=== PATIENT | female | born 1975 | race Caucasian/White ===

== ENCOUNTER → 2020-02-08 12:01 | Outpatient (CLI) | payer OTHER, MEDICAID, SELFPAY ==
--- NOTE | 2020-02-08 | DI.MG.S_ITS ---
BILATERAL DIGITAL SCREENING MAMMOGRAM 3D/2D WITH CAD: 02/08/2020 CLINICAL: Routine screening. Baseline exam. Family history of breast cancer. No prior exams were available for comparison. The tissue of both breasts is heterogeneously dense. This may lower the sensitivity of mammography. Current study was also evaluated with a Computer Aided Detection (CAD) system. No significant masses, calcifications, or other findings are seen in either breast. IMPRESSION: NEGATIVE There is no mammographic evidence of malignancy. A 1 year screening mammogram is recommended. This exam was interpreted at Station ID: [id number]. NOTE: For mammograms, a report in lay terms will be sent to the patient. Approximately 15% of breast malignancies will not be visualized mammographically. In the management of a palpable breast mass, a negative mammogram must not discourage biopsy of a clinically suspicious lesion. Electronically Signed By: Magno osullivan/griselda:02/08/2020 12:28:09 letter sent: Normal Exam ACR BI-RADS Category 1: Negative 3341F
== END ==
PROVIDERS: Family Provider Family Medicine; PCP Family Medicine; Referring Provider Family Medicine; Visit Provider Family Medicine
DX: Z12.31 Encounter for screening mammogram for malignant neoplasm of breast (principal); Z80.3 Family history of malignant neoplasm of breast
CPT/HCPCS: 77063; 77067

== ENCOUNTER 2020-12-20 11:48 | Emergency (ER) | payer OTHER, MEDICAID, SELFPAY ==
[2020-12-20] VITALS (12 sets, daily range): BP systolic 92–119; BP diastolic 51–63; PULSE 70–82; RESP 11–28; TEMP 36.6; O2SAT 98–100; BMI 21.9
--- NOTE | 2020-12-20 12:04 | ED_ITS ---
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 She says it sometimes hurts whenever she takes a deep breath. He denies any radiation of pain. She does not feel it all the time. Does not remember injuring it. She denies any shortness of breath no nausea vomiting. She has not taken any Tylenol for it. She has no real abdominal pain or vaginal bleeding. All Related Data Home Medications Medication Instructions Recorded Confirmed [FISH OIL ] #0 08/11/11 Allergies Allergy/AdvReac Type Severity Reaction Status Date / Time No Known Drug Allergies Allergy Verified 12/20/20 11:53 Review of Systems Review of Systems Narrative: GENERAL: Denies chills, fatigue, malaise, fever, sweats, travel HEENT: Denies sinus pain, ear pain, sore throat, difficulty swallowing, neck pa in RESPIRATORY: See HPI CARDIOVASCULAR: Denies chest pain, palpitations, orthopnea, edema GASTROINTESTINAL: See HPI : Denies dysuria, frequency, incontinence, hematuria, urinary retention, flank pain. MUSCULOSKELETAL: Denies weakness, joint pain, or bony pain SKIN: No rash, no erythema, no pruritus NEUROLOGIC: Denies weakness, dizziness, headache, numbness, change in speech, confusion PSYCHIATRIC: No concerning psychosocial issues. 12 point review of systems is negative except for those stated above and HPI Patient History Family History (Updated 09/08/16 @ 00:00 by Conversion Provider) Grandmother Heart disease Mother Age: 64 Breast cancer Grandmother Cancer Sister Age: 40 Mental health problem Sister Age: 24 Mental health problem Social History Smoking Status: Unknown if ever smoked Smoking Status: Unknown if ever smoked alcohol intake frequency: holidays/special occasions only Substance Use Type: does not use Exam Initial Vital Signs Initial Vital Signs: Vital Signs Temperature 97.9 F 12/20/20 11:53 Pulse Rate 81 12/20/20 11:53 Respiratory Rate 14 12/20/20 11:53 Blood Pressure 119/56 L 12/20/20 11:53 Pulse Oximetry 100 12/20/20 11:53 GENERAL: Well-appearing, well-nourished and in no acute distress. HEENT: Head atraumatic,EOMI, pupils reactive, face symmetric, moist mucous membranes CARDIOVASCULAR: Regular rate and rhythm without murmurs, rubs or gallops. RESPIRATORY: Breath sounds equal bilaterally, no wheezes rales or rhonchi. Pinpoint rib pain on right anterior side no paradoxical ABDOMEN: Soft, gravid no real right upper quadrant pain negative Garcia sign the mild epigastric pain : No CVA tenderness EXTREMITIES: Normal range of motion, no clubbing or edema. Neurovascularly intact NEUROLOGICAL: Alert and oriented x4.Normal gait and speech. SKIN: Warm, dry, no laceration, no petechiae, no rashes or lesions. Course Orders Ordered: ED Orders 12/20/20 11:56 EKG-12 Lead Stat 12/20/20 12:10 Complete Blood Count AUTO DIFF Stat Comprehensive Metabolic Panel Stat Lipase Stat Troponin & CK Cardiac Panel Stat 12/20/20 13:03 US abdomen limited Stat 12/20/20 15:26 XR chest 1V Stat Discontinued Medications Acetaminophen (Acetaminophen 325 Mg Tablet) 975 mg PO NOW ONE Stop: 12/20/20 13:09 Last Admin: 12/20/20 13:14 Dose: 975 mg Documented by: GIO Sodium Chloride (Normal Saline 0.9%) 1,000 mls @ 1,000 mls/hr IV BOLUS ONE Stop: 12/20/20 14:02 Last Infusion: 12/20/20 14:33 Dose: 0 mls/hr Documented by: Admin: 12/20/20 13:14 Dose: 1,000 mls/hr Documented by: GIO Vital Signs Vital signs: Vital Signs - 8 hr 12/20/20 11:53 12/20/20 12:05 12/20/20 12:06 Temperature 97.9 F Pulse Rate 81 77 78 Respiratory Rate 14 15 Blood Pressure 119/56 L 111/58 L Pulse Oximetry 100 99 12/20/20 12:30 12/20/20 13:00 12/20/20 13:08 Temperature Pulse Rate 72 82 71 Respiratory Rate 15 15 14 Blood Pressure 92/51 L 112/60 106/56 L Pulse Oximetry 98 100 99 12/20/20 13:30 12/20/20 14:00 12/20/20 14:17 Temperature Pulse Rate 73 70 74 Respiratory Rate 14 11 L 17 Blood Pressure 107/63 118/59 L 98/54 L Pulse Oximetry 98 100 98 12/20/20 14:30 12/20/20 15:00 12/20/20 16:13 Temperature Pulse Rate 75 74 81 Respiratory Rate 16 28 H 16 Blood Pressure 97/52 L 106/63 109/58 L Pulse Oximetry 100 99 100 MDM - Chest Pain Lab Data Result diagrams: 12/20/20 12:10 12/20/20 12:10 Labs: Lab Results 12/20/20 12/20/20 Range/Units 12:10 12:10 WBC 13.7 H (4.5-11.0) X10^3/uL RBC 3.87 L (4.0-5.2) X10^6/uL Hgb 11.6 L (12.0-16.0) g/dL Hct 34.6 L (36-46) % MCV 89.4 (80-100) fL MCH 30.1 (26-34) PG MCHC 33.7 (30-36) % RDW 13.5 (11.6-14.8) % Plt Count 214 (150-400) X10^3/uL Neut % (Auto) 78.8 H (50-75) % Lymph % (Auto) 10.7 L (25-40) % [place] % (Auto) 5.8 (3-14) % Eos % (Auto) 4.0 (2-4) % Baso % (Auto) 0.7 (0-2) % Neut # (Auto) 46857 H (6080-8217) /uL Lymph # (Auto) 1500 (4810-7504) /uL [place] # (Auto) 800 (0-900) /uL Eos # (Auto) 500 H (0-450) /uL Baso # (Auto) 100 (0-100) /uL Sodium 135 L (137-145) mmol/L Potassium 3.6 (3.4-5.1) mmol/L Chloride 108 H (98-107) mmol/L Carbon Dioxide 22 (22-32) mmol/L BUN 10 (7-17) mg/dL Creatinine 0.51 L (0.52-1.04) mg/dL Estimated GFR > 60.0 (>60) mL/min BUN/Creatinine Ratio 19.6 (6-22) Glucose 98 (70-100) mg/dL Calcium 8.5 (8.4-10.2) mg/dL Total Bilirubin 0.2 (0.2-1.3) mg/dL AST 16 (14-36) IU/L ALT 13 (<35) IU/L Alkaline Phosphatase 76 (38-126) U/L Total Creatine Kinase 40 (30-135) U/L CK-MB (CK-2) TNP CK-MB (CK-2) Rel Index TNP Troponin I < 0.012 (0.01-0.034) ng/mL Total Protein 6.2 L (6.3-8.2) g/dL Albumin 3.5 (3.5-5.0) g/dL Globulin 2.7 (1.7-4.1) g/dL Albumin/Globulin Ratio 1.3 (1.0-2.8) Lipase 97 (23-300) U/L Urine Dip Bedside Urine Glucose Negative Bedside Urine Bilirubin - Negative Bedside Urine Ketone - Negative Urine Specific [place] 1.015 Bedside Urine Occult Blood - Negative Bedside Urine pH 6 Bedside Urine Protein - Negative Bedside Urine Urobilinogen - Negative Bedside Urine Nitrite - Negative Bedside Urine Leukocytes - Negative Esterase Imaging Data US - abdomen: Radiologist's Impression: PROCEDURE: US ABDOMEN LIMITED ? INDICATIONS:? RUQ PAIN, PREGO ? TECHNIQUE:? Real-time focused scanning was performed of the abdomen, with image documentation.? ? COMPARISON:? None. ? FINDINGS:? ? Liver is normal in size and echotexture. ? Multiple gallbladder folds or septations are noted.? Small amount of gallbladder sludge noted.? No gallstones.? No gallbladder wall thickening with gallbladder wall measuring 1.1 millimeters.? No pericholecystic fluid.? No sonographic Garcia sign. ? Biliary tree is nondilated.? Common bile duct measures 2.4 millimeters. ? Moderate right-sided hydronephrosis. ? ? IMPRESSION:? ? 1. No sonographic evidence of cholelithiasis or cholecystitis. ? 2. Moderate right-sided hydronephrosis. ? ? ? Dictated by: Iram Teixeira MD, PhD on 12/20/2020 at 14:31 ?? ECG Data Interpretation: Normal sinus rhythm rate 83 ID interval 116 QRS [address] changes T inversion MDM Narrative Medical decision making narrative: Patient is currently 29 weeks with pin point tenderness in her right anterior ribs. 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 Discussed with patient chest x-ray. Minimal radiation exposure however pinpoint pain between ribs likely a costochondritis. Ultrasound is negative. Initially wanted to waited on x-ray patient is clinically a costochondritis, after further thought she is agreeable to and x-ray. Chest x-ray is negative. Recommend Tylenol and conservative treatment. Discharge Plan Departure Patient Disposition: Home Clinical Impression: Acute costochondritis Instructions: DI for Costochondritis Activity Restrictions/Additional Instructions: *You have been diagnosed with costochondritis *What to do: At this time blood work x-ray ultrasound are overall reassuring You likely have a strained rib cage. Please take it easy *Continue to take medications as directed Tylenol 1000 mg every 6 hours if needed for [id number] *Follow up with your primary care provider in 2-3 days *Return to ER if you should have increasing chest pain, shortness of breath or any new, worsening or concerning symptoms Prescriptions: No Action [FISH OIL ] Qty: 0 RF: 0 Referrals: Humza Roblero MD [Primary Care Provider] -
[2020-12-20 12:19] LABS: Add Manual Diff / Slide Review NO; Basophils Absolute Auto 100 /uL (0-100); Basophils Percent Auto 0.7 % (0-2); Eosinophils Absolute Auto 500 /uL (0-450); Hematocrit 34.6 % (36-46); Hemoglobin 11.6 g/dL (12.0-16.0); Lymphocytes Absolute Auto 1500 /uL (1100-4500); Lymphocytes Percent Auto 10.7 % (25-40); Mean Corpuscular HGB Conc 33.7 % (30-36); Mean Corpuscular Hemoglobin 30.1 PG (26-34); Mean Corpuscular Volume 89.4 fL (80-100); Monocytes Absolute Auto 800 /uL (0-900); Monocytes Percent Auto 5.8 % (3-14); Neutrophils Absolute Auto 10800 /uL (1500-7000); Neutrophils Percent Auto 78.8 % (50-75); Platelet Count 214 X10^3/uL (150-400); Red Blood Cell Count 3.87 X10^6/uL (4.0-5.2); Red Cell Distribution Width 13.5 % (11.6-14.8); White Blood Cell Count 13.7 X10^3/uL (4.5-11.0)
[2020-12-20 12:26] LABS: Alanine Aminotransferase 13 IU/L (<35); Albumin 3.5 g/dL (3.5-5.0); Albumin Globulin Ratio 1.3 (1.0-2.8); Alkaline Phosphatase 76 U/L (38-126); Aspartate Aminotransferase 16 IU/L (14-36); BUN Creatinine Ratio 19.6 (6-22); Bilirubin Total 0.2 mg/dL (0.2-1.3); Blood Urea Nitrogen 10 mg/dL (7-17); Calcium 8.5 mg/dL (8.4-10.2); Carbon Dioxide 22 mmol/L (22-32); Chloride 108 mmol/L (98-107); Creatine Kinase 40 U/L (30-135); Estimated Glomerular Filt Rate > 60.0 mL/min (>60); Globulin 2.7 g/dL (1.7-4.1); Glucose 98 mg/dL (70-100); HEMOLYSIS < 15 (0-50); Lipase 97 U/L (23-300); Potassium 3.6 mmol/L (3.4-5.1); Sodium 135 mmol/L (137-145); Total Protein 6.2 g/dL (6.3-8.2)
[2020-12-20 12:38] LABS: Troponin I < 0.012 ng/mL (0.01-0.034)
--- NOTE | 2020-12-20 13:03 | DI.US.S_ITS ---
PROCEDURE: US ABDOMEN LIMITED INDICATIONS: RUQ PAIN, PREGO TECHNIQUE: Real-time focused scanning was performed of the abdomen, with image documentation. COMPARISON: None. FINDINGS: Liver is normal in size and echotexture. Multiple gallbladder folds or septations are noted. Small amount of gallbladder sludge noted. No gallstones. No gallbladder wall thickening with gallbladder wall measuring 1.1 millimeters. No pericholecystic fluid. No sonographic Garcia sign. Biliary tree is nondilated. Common bile duct measures 2.4 millimeters. Moderate right-sided hydronephrosis. IMPRESSION: 1. No sonographic evidence of cholelithiasis or cholecystitis. 2. Moderate right-sided hydronephrosis. Dictated by: Iram Teixeira MD, PhD on 12/20/2020 at 14:31 Approved by: Iram Teixeira MD, PhD on 12/20/2020 at 14:33
[2020-12-20] MEDS: SODIUM CHLORIDE 0.9% 1,000 ML 1000 ML IV (13:14)
[2020-12-20] MEDS: ACETAMINOPHEN 325 MG TABLET 975 MG PO (13:14)
--- NOTE | 2020-12-20 15:26 | DI.RAD.S_ITS ---
PROCEDURE: XR CHEST 1V INDICATIONS: right sided pain TECHNIQUE: One view of the chest was acquired. COMPARISON: None. FINDINGS: Surgical changes and devices: None. Lungs and pleura: Lungs are clear. No pleural effusions or pneumothorax. Mediastinum: Mediastinal contours appear normal. Heart size is normal. Bones and chest wall: No suspicious bony lesions. Overlying soft tissues appear unremarkable. IMPRESSION: No acute cardiopulmonary disease process. Dictated by: Iram Teixeira MD, PhD on 12/20/2020 at 15:45 Approved by: Iram Teixeira MD, PhD on 12/20/2020 at 15:45
== END 2020-12-20 16:14 | disposition home or self-care (01) ==
PROVIDERS: Emergency Provider Emergency Medicine; Family Provider Family Medicine; PCP Family Medicine
DX: O26.93 Pregnancy related conditions, unspecified, third trimester (principal); M94.0 Chondrocostal junction syndrome [Tietze]; R10.11 Right upper quadrant pain; Z3A.29 29 weeks gestation of pregnancy
CPT/HCPCS: 36415; 71045; 76705; 80053; 81003; 82550; 83690; 84484; 85025; 93005; 96360; 99284; 99285

== ENCOUNTER → 2024-08-29 08:09 | Outpatient (CLI) | payer OTHER, SELFPAY ==
--- NOTE | 2024-08-29 08:10 | DI.MG.S_ITS ---
MM screening mammo BI: 08/29/2024. BI-RADS: 1 CLINICAL: 49-year old female for bilateral screening mammogram. Tyrer-Cuzick lifetime risk of 42.5%. Current reported family history of breast cancer: maternal grandmother, paternal grandmother, mother and paternal aunt. History of ovarian cancer in one first-degree relative. PRIOR EXAMS 02/08/2020. MAMMOGRAPHY TECHNIQUE: 2D and 3D (tomosynthesis) digital mammographic views obtained, with additional images as needed for full coverage. Current study was also evaluated with a Computer Aided Detection (CAD) system. DENSITY C. The breasts are heterogeneously dense, which may obscure small masses. MAMMOGRAPHY FINDINGS Bilateral: No suspicious mass, asymmetry, microcalcification, or other abnormality seen. IMPRESSION: * No evidence of malignancy. RECOMMENDATIONS Bilateral * According to the Tyrer-Cuzick Risk Assessment Model, based on the information provided your patient has a greater than 20% lifetime risk for developing breast cancer. Consider supplemental screening with breast MRI and participation in a high risk screening program. * Annual screening mammography. OVERALL ASSESSMENT CATEGORY BI-RADS-1: Negative. The [employer] recommends annual screening mammography beginning at age 40 for women with average risk of breast cancer. ELECTRONICALLY SIGNED: Bryn Oconnell M.D. on 08/29/2024 at 09:05:58 AM PT Interpreting Station ID: [id number]
== END ==
PROVIDERS: Family Provider Family Medicine; PCP Physician Assistant; Referring Provider Physician Assistant; Visit Provider Physician Assistant
DX: Z12.31 Encounter for screening mammogram for malignant neoplasm of breast (principal); R92.333 Mammographic heterogeneous density, bilateral breasts; Z80.3 Family history of malignant neoplasm of breast; Z80.41 Family history of malignant neoplasm of ovary
CPT/HCPCS: 77063; 77067